=== PATIENT | male | born 1965 | race Caucasian/White ===

== ENCOUNTER 2022-02-22 10:38 | Emergency (ER) | payer OTHER ==
[~2022-02-22] VITALS: Ht 180.3 cm; Wt 122.5 kg
[2022-02-22 11:26] LABS: CREATININE 0.8 mg/dL (0.5-1.5); POTASSIUM 4.2 mmol/L (3.5-5.1)
[2022-02-22 11:29] LABS: BASOPHILS % (AUTO) 0.2 % (0.0-5.0); EOSINOPHILS % (AUTO) 0.5 % (0.0-8.0); LYMPHOCYTES % (AUTO) 17.6 % (21.0-51.0); MEAN CORPUSCULAR HEMOGLOBIN 30.6 pg (27.0-33.0); MEAN CORPUSCULAR HGB CONC 33.9 g/dL (32.0-36.0); MEAN CORPUSCULAR VOLUME 90.3 fL (79-99); MONOCYTES % (AUTO) 10.7 % (3.0-13.0); NEUTROPHILS % (AUTO) 69.4 % (40.0-77.0); PLATELET COUNT (AUTO) 286 K/uL (130-400); RED BLOOD CELL COUNT(AUTO) 5.65 MIL/uL (4.50-6.20); RED CELL DISTRIBUTION WIDTH 12.9 % (11.0-15.5); WHITE BLOOD COUNT (AUTO) 8.2 K/uL (4.8-10.8)
[2022-02-22 11:31] LABS: ALBUMIN 3.5 g/dL (3.5-5.0); TOTAL PROTEIN, SERUM 7.8 g/dL (6.0-8.3)
[2022-02-22] MEDS ORDERED: IOHEXOL 350 MG/ML 100ML INFUS..BTL IV ONE (13:57)
[2022-02-22 14:32] LABS: APPEARANCE,URINE CLEAR (CLEAR); BILIRUBIN,URINE NEGATIVE (NEGATIVE); COLOR,URINE YELLOW (YELLOW); GLUCOSE, URINE (UA) NEGATIVE (NEGATIVE); KETONES,URINE 40 mg/dL (NEGATIVE); LEUKOCYTE ESTERASE ,URINE NEGATIVE Leu/uL (NEGATIVE); NITRATE,URINE NEGATIVE (NEGATIVE); OCCULT BLOOD,URINE NEGATIVE (NEGATIVE); PROTEIN,URINE NEGATIVE (NEGATIVE); UROBILINOGEN,URINE 0.2 mg/dL (0.2-1.0)
[2022-02-22 14:48] LABS: MUCUS,URINE RARE LPF (None Seen); RBC,URINE 0-1 /HPF (0-1); WBC,URINE 0-1 /HPF (0-1)
[2022-02-22] MEDS ORDERED: PANTOPRAZOLE 40 MG/VIAL IVP STA (15:21)
[2022-02-22] MEDS ORDERED: KETOROLAC 15MG/ML VIAL (15MG/ML) IV STA (15:35)
[2022-02-22] MEDS ORDERED: CIPR-279 PO (15:38)
[2022-02-22] MEDS ORDERED: ACET-66 PO (15:38)
[2022-02-22 16:17] VITALS: BP 131/86
== END 2022-02-22 16:17 | disposition home or self-care (01) ==
LOC: EDH 10:38
DX: K52.9 Noninfective gastroenteritis and colitis, unspecified (principal); K57.30 Diverticulosis of large intestine without perforation or abscess without bleeding; E78.00 Pure hypercholesterolemia, unspecified; I10 Essential (primary) hypertension; Z87.19 Personal history of other diseases of the digestive system; Z90.49 Acquired absence of other specified parts of digestive tract; Z95.5 Presence of coronary angioplasty implant and graft
CPT/HCPCS: 99285; 74177; 96374; 71045; 96375; 84484; 80053; 83690; 85025; 81001; 36415; 93005; C9113; J1885; Q9967

== ENCOUNTER 2022-05-08 13:31 | Inpatient (IN) | payer OTHER ==
[~2022-05-08] VITALS: Ht 177.8 cm; Wt 112.5 kg
[~2022-05-08 13:31] MED LIST: ACET-66 PO; CIPR-279 PO
[2022-05-08 13:56] LABS: BASOPHILS % (AUTO) 0.3 % (0.0-5.0); EOSINOPHILS % (AUTO) 0.5 % (0.0-8.0); HEMATOCRIT 42.7 % (42-54); LYMPHOCYTES % (AUTO) 20.8 % (21.0-51.0); MEAN CORPUSCULAR HEMOGLOBIN 31.2 pg (27.0-33.0); MEAN CORPUSCULAR HGB CONC 35.6 g/dL (32.0-36.0); MEAN CORPUSCULAR VOLUME 87.7 fL (79-99); MONOCYTES % (AUTO) 6.6 % (3.0-13.0); NEUTROPHILS % (AUTO) 71.3 % (40.0-77.0); PLATELET COUNT (AUTO) 296 K/uL (130-400); RED BLOOD CELL COUNT(AUTO) 4.87 MIL/uL (4.50-6.20); RED CELL DISTRIBUTION WIDTH 13.3 % (11.0-15.5); WHITE BLOOD COUNT (AUTO) 10.3 K/uL (4.8-10.8)
[2022-05-08 14:09] LABS: ALBUMIN 3.3 g/dL (3.5-5.0)
[2022-05-08] MEDS ORDERED: KETOROLAC 30MG VIAL (30MG/ML) IVP ONE (16:00)
[2022-05-08] MEDS ORDERED: PANTOPRAZOLE 40 MG/VIAL IVP ONE (16:00)
[2022-05-08] MEDS ORDERED: NITROGLYCERIN 0.4 MG SL TAB SL STA (16:42)
[2022-05-08 16:48] LABS: APPEARANCE,URINE CLEAR (CLEAR); BILIRUBIN,URINE NEGATIVE (NEGATIVE); COLOR,URINE LIGHT-YELLOW (YELLOW); GLUCOSE, URINE (UA) NEGATIVE (NEGATIVE); KETONES,URINE NEGATIVE (NEGATIVE); LEUKOCYTE ESTERASE ,URINE NEGATIVE Leu/uL (NEGATIVE); NITRATE,URINE NEGATIVE (NEGATIVE); OCCULT BLOOD,URINE NEGATIVE (NEGATIVE); PROTEIN,URINE NEGATIVE (NEGATIVE); UROBILINOGEN,URINE 0.2 mg/dL (0.2-1.0)
[2022-05-08 17:00] LABS: AMPHET/METH SCREEN,URINE NEGATIVE (NEGATIVE); BARBITURATE SCREEN, URINE NEGATIVE (NEGATIVE); BENZODIAZEPINES SCREEN,URINE NEGATIVE (NEGATIVE); CANNABINOID SCREEN,URINE NEGATIVE (NEGATIVE); COCAINE SCREEN,URINE NEGATIVE (NEGATIVE); OPIATE SCREEN,URINE NEGATIVE (NEGATIVE); PHENCYCLIDINE SCREEN,URINE NEGATIVE (NEGATIVE)
[2022-05-08] MEDS ORDERED: NITROGLYCERIN 0.4 MG SL TAB SL PRN (20:00)
[2022-05-08] MEDS ORDERED: LACTULOSE 20 GM/30 ML UDCUP PO PRN (20:00)
[2022-05-08] MEDS ORDERED: MAG/ALUM/SIMETH 30 ML UDCUP PO PRN (20:00)
[2022-05-08] MEDS ORDERED: DIPHENHYDRAMINE HCL 25 MG CAPSULE PO PRN (20:00)
[2022-05-08] MEDS ORDERED: ONDANSETRON 4MG INJ IVP PRN (20:00)
[2022-05-08] MEDS ORDERED: ACETAMINOPHEN 325 MG TAB PO PRN (20:00)
[2022-05-08] MEDS ORDERED: CLONIDINE HCL 0.1 MG TABLET PO PRN (20:00)
[2022-05-08] MEDS ORDERED: ATORVASTATIN 20 MG TABLET PO SCH (21:00)
[2022-05-08] MEDS: FAMOTIDINE 20MG TAB PO SCH (21:27)
[2022-05-08 22:33] VITALS: BP 125/81
[2022-05-09 04:14] VITALS: BP 126/76
[2022-05-09 05:07] LABS: BASOPHILS % (AUTO) 0.4 % (0.0-5.0); EOSINOPHILS % (AUTO) 1.6 % (0.0-8.0); HEMATOCRIT 44.1 % (42-54); MEAN CORPUSCULAR HEMOGLOBIN 30.4 pg (27.0-33.0); MEAN CORPUSCULAR HGB CONC 34.2 g/dL (32.0-36.0); MEAN CORPUSCULAR VOLUME 88.9 fL (79-99); MONOCYTES % (AUTO) 10.2 % (3.0-13.0); NEUTROPHILS % (AUTO) 68.3 % (40.0-77.0); PLATELET COUNT (AUTO) 279 K/uL (130-400); RED BLOOD CELL COUNT(AUTO) 4.96 MIL/uL (4.50-6.20); RED CELL DISTRIBUTION WIDTH 13.3 % (11.0-15.5); WHITE BLOOD COUNT (AUTO) 9.7 K/uL (4.8-10.8)
[2022-05-09 05:46] LABS: CREATININE 0.9 mg/dL (0.5-1.5); POTASSIUM 4.4 mmol/L (3.5-5.1); THYROID STIMULATING HORMONE 0.79 uIU/mL (0.36-3.74)
[2022-05-09] MEDS ORDERED: REGADENOSON 0.4 MG/5 ML PF SYG IVP SCH (07:30)
[2022-05-09] MEDS: FAMOTIDINE 20MG TAB PO SCH ×2 (07:39→20:13)
[2022-05-09] MEDS: LISINOPRIL 10 MG TABLET PO SCH (07:40)
[2022-05-09] MEDS: ASPIRIN 81 MG EC TAB PO SCH (07:40)
[2022-05-09 08:00] VITALS: BP 124/74
[2022-05-09] MEDS: ENOXAPARIN SODIUM 40 MG/0.4 ML SYRINGE SQ SCH (09:00)
[2022-05-09] MEDS: ACETAMINOPHEN 325 MG TAB PO PRN (11:44)
[2022-05-09 11:53] VITALS: BP 135/87
[2022-05-09 15:42] VITALS: BP 129/67
[2022-05-09 19:30] VITALS: BP 117/68
[2022-05-09] MEDS ORDERED: ISOSORBIDE MONO 30MG SR TAB PO ONE (19:30)
[2022-05-09] MEDS: ATORVASTATIN 40 MG TABLET PO SCH (20:14)
[2022-05-09] MEDS: CARVEDILOL 3.125 MG TABLET PO SCH (20:14)
[2022-05-10] VITALS (13 sets, daily range): BP systolic 97–126; BP diastolic 54–83
[2022-05-10] MEDS: ACETAMINOPHEN 325 MG TAB PO PRN (05:50)
[2022-05-10 05:52] LABS: BASOPHILS % (AUTO) 0.2 % (0.0-5.0); EOSINOPHILS % (AUTO) 1.2 % (0.0-8.0); HEMATOCRIT 44.5 % (42-54); LYMPHOCYTES % (AUTO) 20.1 % (21.0-51.0); MEAN CORPUSCULAR HEMOGLOBIN 30.7 pg (27.0-33.0); MEAN CORPUSCULAR HGB CONC 32.6 g/dL (32.0-36.0); MEAN CORPUSCULAR VOLUME 94.3 fL (79-99); MONOCYTES % (AUTO) 7.9 % (3.0-13.0); PLATELET COUNT (AUTO) 300 K/uL (130-400); RED BLOOD CELL COUNT(AUTO) 4.72 MIL/uL (4.50-6.20); RED CELL DISTRIBUTION WIDTH 13.2 % (11.0-15.5); WHITE BLOOD COUNT (AUTO) 11.5 K/uL (4.8-10.8)
[2022-05-10 06:03] LABS: CREATININE 0.8 mg/dL (0.5-1.5); POTASSIUM 4.4 mmol/L (3.5-5.1)
[2022-05-10] MEDS: LISINOPRIL 10 MG TABLET PO SCH (08:44)
[2022-05-10] MEDS: CARVEDILOL 3.125 MG TABLET PO SCH ×2 (08:44→19:46)
[2022-05-10] MEDS: ASPIRIN 81 MG EC TAB PO SCH (08:44)
[2022-05-10] MEDS: FAMOTIDINE 20MG TAB PO SCH ×2 (08:44→19:46)
[2022-05-10] MEDS: ENOXAPARIN SODIUM 40 MG/0.4 ML SYRINGE SQ SCH (08:45)
[2022-05-10] MEDS: ISOSORBIDE MONO 30MG SR TAB PO SCH (12:09)
[2022-05-10 13:31] LABS: INR 0.94 (0.85-1.15); PROTHROMBIN TIME 10.3 SEC (9.6-11.6)
[2022-05-10] MEDS ORDERED: VERAPAMIL HCL 2.5 MG/ML VIAL ONE (14:46)
[2022-05-10] MEDS ORDERED: IOHEXOL 350 MG/ML 100ML INFUS..BTL IV ONE (14:46)
[2022-05-10] MEDS ORDERED: HEPARIN 10,000 UNIT/10ML (1,000 UNIT/ML) VIAL ONE (14:46)
[2022-05-10] MEDS ORDERED: MIDAZOLAM HCL 1 MG/ML 2ML VIAL ONE (14:46)
[2022-05-10] MEDS ORDERED: IOHEXOL-350 50ML VIAL IV ONE ×2 (14:46→17:12)
[2022-05-10] MEDS ORDERED: NITROGLYCERIN 50MG VIAL ONE (14:46)
[2022-05-10] MEDS ORDERED: FENTANYL CITRATE PF 50 MCG/1 ML 2ML VIAL ONE (14:47)
[2022-05-10] MEDS ORDERED: LIDOCAINE HCL 400MG/20ML VIAL ONE (14:47)
[2022-05-10] MEDS ORDERED: TICAGRELOR 90 MG TABLET ONE (17:35)
[2022-05-10] MEDS ORDERED: 0.9%NACL 1000ML 1,000 ML IV SCH (18:00)
[2022-05-10] MEDS: ATORVASTATIN 40 MG TABLET PO SCH (19:46)
[2022-05-11] MEDS: ACETAMINOPHEN 325 MG TAB PO PRN (03:29)
[2022-05-11 03:57] VITALS: BP 111/63
[2022-05-11 05:34] LABS: BASOPHILS % (AUTO) 0.2 % (0.0-5.0); EOSINOPHILS % (AUTO) 0.8 % (0.0-8.0); HEMATOCRIT 41.7 % (42-54); LYMPHOCYTES % (AUTO) 15.7 % (21.0-51.0); MEAN CORPUSCULAR HEMOGLOBIN 30.8 pg (27.0-33.0); MEAN CORPUSCULAR HGB CONC 33.3 g/dL (32.0-36.0); MEAN CORPUSCULAR VOLUME 92.3 fL (79-99); MONOCYTES % (AUTO) 8.8 % (3.0-13.0); PLATELET COUNT (AUTO) 289 K/uL (130-400); RED BLOOD CELL COUNT(AUTO) 4.52 MIL/uL (4.50-6.20); RED CELL DISTRIBUTION WIDTH 13.2 % (11.0-15.5); WHITE BLOOD COUNT (AUTO) 12.4 K/uL (4.8-10.8)
[2022-05-11 05:51] LABS: CREATININE 0.9 mg/dL (0.5-1.5); POTASSIUM 3.8 mmol/L (3.5-5.1); TOTAL PROTEIN, SERUM 6.3 g/dL (6.0-8.3)
[2022-05-11 05:58] LABS: HEMOGLOBIN A1C 5.3 % (4.0-6.0)
[2022-05-11 08:00] VITALS: BP 157/86
[2022-05-11] MEDS: ASPIRIN 81 MG EC TAB PO SCH (08:35)
[2022-05-11] MEDS: ENOXAPARIN SODIUM 40 MG/0.4 ML SYRINGE SQ SCH (08:35)
[2022-05-11] MEDS: LISINOPRIL 10 MG TABLET PO SCH (08:35)
[2022-05-11] MEDS: ISOSORBIDE MONO 30MG SR TAB PO SCH (08:36)
[2022-05-11] MEDS: FAMOTIDINE 20MG TAB PO SCH (08:37)
[2022-05-11] MEDS: CARVEDILOL 3.125 MG TABLET PO SCH (08:37)
[2022-05-11] MEDS ORDERED: TICAGRELOR 90 MG TABLET PO SCH (09:00)
[2022-05-11] MEDS ORDERED: FAMO20TA8 PO (09:55)
[2022-05-11] MEDS ORDERED: CARV3.1262 PO (09:55)
[2022-05-11] MEDS ORDERED: Isosorbide Mono 30MG Sr Tab PO (09:55)
[2022-05-11] MEDS ORDERED: LISI10TA24 PO (09:55)
[2022-05-11] MEDS ORDERED: ATOR40TA69 PO (09:55)
[2022-05-11] MEDS ORDERED: TICA90TA PO (09:55)
[2022-05-11] MEDS ORDERED: AEC81 PO (09:55)
[2022-05-11 11:52] VITALS: BP 116/64
== END 2022-05-11 12:30 | disposition home or self-care (01) | DRG 247 ==
LOC: EDH 13:31 → EDHIP 13:32 → OBSVTOIN 13:32 → 4CH 21:29
PROVIDERS: ADMIT Family Medicine; ATTEND Family Medicine
PROC: 4A02XM4 Measurement of Cardiac Total Activity, External Approach (ICD-10-PCS; 2022-05-09)
PROC: 3E073KZ Introduction of Other Diagnostic Substance into Coronary Artery, Percutaneous Approach (ICD-10-PCS; 2022-05-09)
PROC: 4A023N7 Measurement of Cardiac Sampling and Pressure, Left Heart, Percutaneous Approach (ICD-10-PCS; principal; 2022-05-10)
PROC: 027034Z Dilation of Coronary Artery, One Artery with Drug-eluting Intraluminal Device, Percutaneous Approach (ICD-10-PCS; 2022-05-10)
PROC: B2111ZZ Fluoroscopy of Multiple Coronary Arteries using Low Osmolar Contrast (ICD-10-PCS; 2022-05-10)
DX: I25.110 Atherosclerotic heart disease of native coronary artery with unstable angina pectoris (principal); G89.29 Other chronic pain; M54.9 Dorsalgia, unspecified; E66.01 Morbid (severe) obesity due to excess calories; F32.A Depression, unspecified; E78.00 Pure hypercholesterolemia, unspecified; I50.9 Heart failure, unspecified; Z90.49 Acquired absence of other specified parts of digestive tract; I25.2 Old myocardial infarction; Z79.82 Long term (current) use of aspirin; Z79.899 Other long term (current) drug therapy; Z87.19 Personal history of other diseases of the digestive system; Z68.35 Body mass index [BMI] 35.0-35.9, adult
CPT/HCPCS: 36415; 71045; 78452; 80048; 80053; 80061; 80305; 81003; 83036; 83735; 83880; 84443; 84484; 85025; 85610; 85730; 87040; 93005; 93017; 93306; 93356; 93458; 96374; 99156; 99157; A9500; C1769; C1887; C9113; C9600; G0378; J1644; J1650; J1885; J2250; J2785; J3010; J3490; Q9967

== ENCOUNTER → 2023-08-08 | Outpatient (CLI) | payer OTHER ==
[~2023-08-08] MED LIST changes: -ACET-66 PO; +AEC81 PO; +ATOR40TA69 PO; +CARV3.1262 PO; -CIPR-279 PO; +FAMO20TA8 PO; +Isosorbide Mono 30MG Sr Tab PO; +LISI10TA24 PO; +TICA90TA PO
== END | disposition home or self-care (01) ==
LOC: RAH 15:09
PROVIDERS: ATTEND Internal Medicine
DX: M54.50 Low back pain, unspecified (principal)
CPT/HCPCS: 72100

== ENCOUNTER 2025-01-07 12:34 | Emergency (ER) | payer SELFPAY ==
[~2025-01-07] VITALS: Ht 182.9 cm; Wt 95.3 kg
--- NOTE | 2025-01-07 12:51 | ERN ---
ED Note History of Present Illness Stated Complaint: CP/ SOB/ SYNCOPE Chief Complaint: Multiple Complaints Time Seen by MD: 12:44 Dictation: IS A 59-YEAR-OLD HERE WITH MULTIPLE COMPLAINTS COMING IN VIA EMS. FIRST COMPLAINT IS HE STATES THIS MORNING HE HAD BEEN HAVING NAUSEA VOMITING WITH CONSTIPATION HAS BEEN ON THE TOILET, GOT UP TO WALK AND FELT AND HIT HIS LEFT SIDE AND HEAD. HE STATES HE CAN NOT REMEMBER ANYTHING. HE SAID WHEN HE WOKE UP HE SIMPLY GOT UP FROM THE FLOOR AND WENT BACK TO HIS BEDROOM. HE ALSO STATES HE HAS BEEN HAVING ANTERIOR CHEST PAIN STARTING THIS MORNI WITHOUT SHORTNESS A BREATH, NO JAW PAIN NO ARM PAIN NO BACK PAIN. STATES HE DOES HAVE A HISTORY OF PRIOR STENT PLACED BY HIS [employer] LINE [facility]PERATOR'S IN [facility], CAN NOT REMEMBER THE NAME. HE IS ON A PLATELET AGGREGATE HOWEVER THERE WAS NO BLOOD THINNER. NO NAUSEA VOMITING AND HE IS ABLE TO ANSWER ALL QUESTIONS APPROPRIATELY. NIH IS 0. NO IRAHETA OR RACCOON SIGN ON THE EMS STRETCHER THERE WAS NO HEMOTYMPANUM. Allergies: Coded Allergies: No Known Allergies (Unverified Allergy, Unknown, 02/22/22) Home Meds Active Scripts Carvedilol (Coreg) 3.125 Mg Tablet, 3.125 MG PO BID, #60 TAB 0 Refills Prov:MELVIN PACHECO AGACNP 05/11/22 Famotidine (Famotidine) 20 Mg Tablet, 20 MG PO BID, #60 TAB 0 Refills Prov:MELVIN PACHECO AGACNP 05/11/22 Atorvastatin Calcium (LIPITOR) 40 Mg Tablet, 40 MG PO HS, #30 TAB 0 Refills Prov:MELVIN PACHECO AGACNP 05/11/22 Ticagrelor (Brilinta) 90 Mg Tablet, 90 MG PO BID, #60 TAB 0 Refills Prov:MELVIN PACHECO AGACNP 05/11/22 Lisinopril (Lisinopril) 10 Mg Tablet, 10 MG PO DAILY, #30 TAB 0 Refills Prov:MELVIN PACHECO AGACNP 05/11/22 [Isosorbide [place] 30MG Sr Tab] 30 MG TAB.ER.24H No Conflict Check, 30 MG PO DAILY, #30 0 Refills Prov:MELVIN PACHECO AGACNP 05/11/22 Aspirin (ASPIRIN 81 MG ECTAB) 81 Mg Ectab, 81 MG PO DAILY, #30 TAB.EC 0 Refills Prov:MELVIN PACHECO AGACNP 05/11/22 Past Medical History Past Medical History: CAD, CHF, High Cholesterol, Hypertension, [place] Additional Past Medical Hx: HIATAL HERNIA, POLYPS IN COLON Surgical History: Cholecystectomy Surgical History Other: CARDIAC STENTX1 Social History: Negative RN Note Reviewed/Agreed w/PFSH: Yes Review of System Dictation CONSTITUTIONAL: NEGATIVE EXCEPT FOR HPI HEAD/FACE: NEGATIVE EXCEPT FOR HPI LEFT OCCIPITAL TENDERNESS EENT: NEGATIVE EXCEPT FOR HPI RESPIRATORY: NEGATIVE EXCEPT FOR HPI CHEST PAIN GASTROINTESTINAL/ABDOMINAL: NEGATIVE EXCEPT FOR HPI NAUSEA VOMITING GENITOURINARY: NEGATIVE EXCEPT FOR HPI MUSCULOSKELETAL: NEGATIVE EXCEPT FOR HPI INTEGUMENTARY: NEGATIVE EXCEPT FOR HPI NEUROLOGICAL/PSYCH: NEGATIVE EXCEPT FOR HPI HEMATOLOGIC/LYMPHATIC: NEGATIVE EXCEPT FOR HPI ALL SYSTEMS NEGATIVE, EXCEPT NOTED ABOVE. 13 POINT REVIEW OF SYSTEMS ASSESSED AND ALL NEGATIVE EXCEPT FOR ABOVE. Initial Vital Sign VS Vital Signs Date Time Temp Pulse Resp B/P (MAP) Pulse Ox O2 Delivery O2 Flow Rate FiO2 01/07/25 14:33 98.1 100 16 112/69 100 Room Air* 0 21 Physical Exam Dictation NORMAL EXAM VITAL SIGNS REVIEWED GENERAL APPEARANCE: ALERT, ORIENTED X 3, MILD ACUTE DISTRESS, WELL DEVELOPED, NOURISHED. HEAD AND FACE: MILD LEFT OCCIPITAL TENDERNESS. NO HEMATOMA NO IRAHETA OR RACCOON SIGN EYES: PERRL, PINK CONJUNCTIVAS, EYELID NO TRAUMA, ANTERIOR CHAMBER WITH ARCUS SENILIS. EARS: PINNAS INTACT AND NO SIGNS OF TRAUMA OR ERYTHEMA EAR CANALS CLEAR AND NO DISCHARGE TM NO ERYTHEMA NO HEMOTYMPANUM NOSE: NO DISCHARGE, NO BLEEDING. OROPHARYNX: MOUTH NORMAL, TONGUE PINK, PHARYNX CLEAR,NO ERYTHEMA, TONSILS NO EXUDATES, NO ABSCESSES NOTED, MUCOUS MEMBRANE MOIST NECK: SUPPLE, NON-TENDER, NO THYROMEGALY, NO MASSES, NO JVD, NO BRUITS BREAST:DEFERRED CHEST:NO TENDERNESS, NO CREPITUS, NO PARADOXICAL MOVEMENT, NO RETRACTIONS LUNGS:CLEAR, WELL-VENTILATED, SYMMETRIC, NO RALES, NO WHEEZING, NO RHONCHI, NO STRIDOR, GOOD BREATH SOUNDS BILATERALLY HEART: REGULAR RATE, REGULAR RHYTHM, NO MURMUR, NO GALLOPS VASCULAR: NO PERIPHERAL EDEMA, ABDOMEN: SOFT, POSITIVE BOWEL SOUNDS, NONDISTENDED, NO GUARDING, NONTENDER, NO REBOUND, NO MASSES NO HEPATOMEGALY, NO SPLENOMEGALY, NO BRENNER'S SIGN, NO HERNIAS. RECTAL: DEFERRED GENITAL: DEFERRED NEUROLOGICAL: NORMAL SPEECH, MOTOR FUNCTION INTACT, SENSORY FUNCTION INTACT MUSCULOSKELETAL: NECK NONTENDER, FULL RANGE OF MOTION, BACK NONTENDER, FULL RANGE OF MOTION, EXTREMITIES: NONTENDER, FULL RANGE OF MOTION SKIN: COLOR PINK, DRY, NO TURGOR, NO RASH, NO LACERATIONS, NO ABRASIONS, NO CONTUSIONS. LYMPHATIC: DEFERRED Results (Laboratory/Radiology) Laboratory/Radiology Laboratory Tests Test 01/07/25 13:01 01/07/25 15:15 White Blood Count 12.5 K/uL (4.8-10.8) H Red Blood Count 5.46 MIL/uL (4.50-6.20) Hemoglobin 17.3 g/dL (14.0-18.0) Hematocrit 50.8 % (42-54) Mean Corpuscular Volume 93.0 fL (79-99) Mean Corpuscular Hemoglobin 31.7 pg (27.0-33.0) Mean Corpuscular Hemoglobin Concent 34.1 g/dL (32.0-36.0) Red Cell Distribution Width 13.8 % (11.0-15.5) Platelet Count 334 K/uL (130-400) Mean Platelet Volume 9.6 fL (7.5-10.5) Immature Granulocyte % (Auto) 0.5 % (0-1) Neutrophils (%) (Auto) 89.8 % (40.0-77.0) H Lymphocytes (%) (Auto) 4.6 % (21.0-51.0) L Monocytes (%) (Auto) 4.7 % (3.0-13.0) Eosinophils (%) (Auto) 0.2 % (0.0-8.0) Basophils (%) (Auto) 0.2 % (0.0-5.0) Neutrophils # (Auto) 11.2 K/uL (1.8-7.7) H Lymphocytes # (Auto) 0.6 K/uL (1.0-4.8) L Monocytes # (Auto) 0.6 K/uL (0.1-1.0) Eosinophils # (Auto) 0.03 K/uL (0.00-0.70) Basophils # (Auto) 0.03 K/uL (0.00-0.20) Absolute Immature Granulocyte (auto 0.06 K/uL (0-1) Nucleated Red Blood Cells 0.0 % (0.0-0.19) White Cell Morphology Comment See comments Sodium Level 139 mmol/L (136-145) Potassium Level 4.1 mmol/L (3.5-5.1) Chloride Level 105 mmol/L (101-111) Carbon Dioxide Level 28 mmol/L (21-32) Blood Urea Nitrogen 20 mg/dL (7-18) H Creatinine 0.8 mg/dL (0.5-1.3) Glomerular Filtration Rate Calc 103 mL/min (>90) Random Glucose 101 mg/dL (70-105) Total Calcium 8.7 mg/dL (8.5-10.1) Troponin I High Sensitivity 7 ng/L (4-75) Lipase 26 U/L (16-77) Urine Color YELLOW (YELLOW) Urine Appearance CLEAR (CLEAR) Urine pH 7.5 (5.0-8.0) Urine Specific Sebastian 1.027 (1.001-1.031) Urine Protein 10 mg/dL (NEGATIVE) H Urine Glucose (UA) NEGATIVE mg/dL (NEGATIVE) Urine Ketones NEGATIVE mg/dL (NEGATIVE) Urine Occult Blood NEGATIVE (NEGATIVE) Urine Nitrate NEGATIVE (NEGATIVE) Urine Bilirubin NEGATIVE mg/dL (NEGATIVE) Urine Urobilinogen 2.0 mg/dL (0.2-1.0) H Urine Leukocyte Esterase NEGATIVE David/uL Urine RBC 0-1 /HPF (0-1) Urine WBC 0-1 /HPF (0-1) Urine Squamous Epithelial Cells RARE /HPF (0-2) Urine Bacteria None /HPF (None Seen) EXAM: CT Head Without IV contrast. CLINICAL HISTORY: OCCIPITAL PAIN TENDERNESS STATUS POST FALL TECHNIQUE: Axial computed tomography images of the head/brain without intravenous contrast. COMPARISON: None provided. FINDINGS: BRAIN: No evidence of acute hemorrhage. No mass lesion. No CT evidence for acute territorial infarct. No midline shift or extra-axial collections. VENTRICLES: No hydrocephalus. ORBITS: The orbits are unremarkable. SINUSES AND MASTOIDS: The paranasal sinuses and mastoid air cells are clear. BONES: No fracture. SOFT TISSUES: Unremarkable. IMPRESSION: No acute intracranial abnormality. /[facility] Labs Reviewed?: Yes EKG Comment: 1313/EKG SINUS TACHYCARDIA/HEART RATE 1 OVER SEVEN/OCCASIONAL PACS ED Course ED Course Orders Procedure Category Date Status Time Ct Head/Brain W/O CT 01/07/25 Resulted Contrast 12:49 Cbc With Differential LAB 01/07/25 Complete 12:49 Troponin I High LAB 01/07/25 Complete Sensitivity 12:49 Urinalysis Profile LAB 01/07/25 Complete 12:49 12 Lead Ekg Tracing- EKG 01/07/25 Complete Technical 12:49 0.9%Nacl 1000ml (Ns PHA 01/07/25 Complete 1000ml) 13:00 Lipase LAB 01/07/25 Complete 12:49 Basic Metabolic Panel LAB 01/07/25 Complete 12:49 Acetaminophen 500mg PHA 01/07/25 Complete Tab (Tylenol 500mg T 13:00 Current Medications Medications (Trade) Dose Ordered Sig/Shabnam Route PRN Reason Start Time Stop Time Status Last Admin Dose Admin Acetaminophen (TYLenol 500MG TAB) 1,000 mg ONCE ONCE PO 01/07/25 13:00 01/07/25 13:01 DC 01/07/25 14:09 Sodium Chloride 1,000 ml @ 0 mls/hr ONCE ONCE IV 01/07/25 13:00 01/07/25 13:01 DC 01/07/25 14:09 Vital Signs Date Time Temp Pulse Resp B/P (MAP) Pulse Ox O2 Delivery O2 Flow Rate FiO2 01/07/25 14:33 98.1 100 16 112/69 100 Room Air* 0 21 1550/CAT SCAN OF THE HEAD IS NEGATIVE CARDIAC WORKUP IS NEGATIVE. PATIENT DISCHARGED HOME TO FOLLOW UP WITH HIS PRIMARY CARE DOCTOR IN THE NEXT 1-2 DAYS. CLOSED HEAD INJURY INFORMATION GIVE HEART Score Response (Comments) Value EKG: Repolarization changes 1 Age: 45-65yrs (+1) 1 Risk Factors: 1-2 risk factors (+1) 1 Initial Troponin: Normal limit (0) 0 Total 3 Medical Decision Making MDM MDM: DIFFERENTIAL DIAGNOSIS: ACS/AMI/ELECTROLYTE IMBALANCE/DEHYDRATION/CLOSED HEAD INJURY/DROP SUBDURAL HEMATOMA/UTI RATIONALE: TESTS CONSIDERED AND ORDERED SECONDARY TO SHARED DECISION MAKING INCLUDE: LABS/RADIOLOGY/EKG PREVIOUS OUTSIDE RECORDS REVIEWED: OLD ER VISITS. RISK OF COMPLICATION AND/OR MORBIDITY OR MORTALITY OF PATIENT MANAGEMENT: NONE MEDICATIONS-PER MEDICATION RECONCILIATION NEED FOR HOSPITALIZATION: PATIENT DOES NOT MEET CRITERIA FOR HOSPITALIZATION. NO NEED FOR EMERGENCY MAJOR/MINOR SURGERY: NO THERE ARE NO SOCIAL CONCERNS WITH THIS PATIENT. PRESCRIPTION DRUG MANAGEMENT ZOFRAN PRESCRIPTIONS WILL INCLUDE SYMPTOMATIC CARE PATIENT'S PRIOR EXTERNAL MEDICAL RECORDS FROM OTHER ER VISITS WERE REVIEWED BY ME INDICATED. PRIOR TESTING AND RESULTS FROM PREVIOUS VISITS WERE REVIEWED. PRIOR TESTS WERE TAKEN INTO ACCOUNT WITH MEDICAL DECISION MAKING AND RESOURCE UTILIZATION, INDEPENDENT HISTORIAN/HISTORIANS WERE USED TO OBTAIN COMPLETE MEDICAL HISTORY. I INDEPENDENTLY INTERPRETED THE TEST THAT WERE PERFORMED, RESULTS WERE REVIEWED BY ME AND CONSIDERED FINDINGS ON RADIOLOGY IF ORDERED. MEDICAL MANAGEMENT AND EXAMINATION INTERPRETATION DISCUSSIONS WERE HAD BY ME WITH OTHER QUALIFIED HEALTHCARE PROFESSIONALS INDICATED FOR THE PATIENT'S CARE. DX & DISP Disposition: Discharge Departure Impression: Primary Impression: Atypical chest pain Additional Impressions: Nausea & vomiting, Contusion of scalp, initial encounter, Fall, Obesity, Multiple contusions Condition: Stable Scripts Ondansetron (Ondansetron Odt) 4 Mg Tab.rapdis 4 MG PO Q6HPRN PRN for nausea, #16 TAB 0 Refills Prov: TOM MCKEON 01/07/25 Additional Instructions: FOLLOW-UP WITH PRIMARY CARE PROVIDER IN 1 TO 2 DAYS. TAKE MEDICATIONS DIRECTED HERE IN THE EMERGENCY ROOM. OKAY TO CONTINUE HOME MEDICATIONS UNLESS OTHERWISE DISCUSSED DURING YOUR VISIT IN THE EMERGENCY ROOM TODAY. RETURN TO YOUR NEAREST EMERGENCY ROOM IF SYMPTOMS WORSEN OR IF THERE IS NO IMPROVEMENT. CALL 911 IF YOU NEED IMMEDIATE ASSISTANCE. TAKE TYLENOL OR MOTRIN [id number] NEEDED AND IF NO CONTRAINDICATIONS ARE PRESENT. INCREASE ORAL HYDRATION. A WOUND CULTURE OR URINE CULTURE WAS ORDERED HERE IN THE EMERGENCY ROOM DEPARTMENT PLEASE FOLLOW-UP WITH PRIMARY CARE PROVIDER AND ADVISE THEM TO GET REPEAT PORTS FROM OUR FACILITY. IF YOU HAD ANY FRANCINE WRAP/SPLINTS THAT WERE APPLIED HERE, PLEASE DO NOT REMOVE THEM UNTIL YOU SEE YOUR PRIMARY CARE OR SPECIALTY. TAKE TYLENOL [id number]-YLHDRAR NEEDED FOR YOUR HEAD PAIN. INCREASE YOUR FLUID INTAKE. DIET AND ACTIVITY TOLERATED, SEE YOUR PRIMARY CARE DOCTOR FOR FOLLOW UP AND MANAGEMENT. Referrals: NONE (PCP) Time of Disposition: 15:54 I have reviewed the case, and I agree with, Diagnosis and Plan TOM MCKEON Jan 07, 2025 12:51
[2025-01-07 13:13] LABS: IMMATURE GRANULOCYTE ABSOLUTE 0.06 K/uL (0-1); NUCLEATED RED BLOOD CELLS 0.0 % (0.0-0.19); PLATELET COUNT (AUTO) 334 K/uL (130-400); RED BLOOD CELL COUNT(AUTO) 5.46 MIL/uL (4.50-6.20); RED CELL DISTRIBUTION WIDTH 13.8 % (11.0-15.5); WHITE BLOOD COUNT (AUTO) 12.5 K/uL (4.8-10.8)
[2025-01-07 13:29] LABS: CREATININE 0.8 mg/dL (0.5-1.3); GLOMERULAR FILTR. RATE CALC 103.0 mL/min (>90); GLUCOSE,RANDOM 101.0 mg/dL (70-105); SODIUM SERUM 139.0 mmol/L (136-145); UREA NITROGEN, BLOOD 20.0 mg/dL (7-18)
[2025-01-07] MEDS: 0.9%NACL 1000ML 1,000 ML IV ONE (14:09)
--- NOTE | 2025-01-07 14:42 | EKG ---
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
--- NOTE | 2025-01-07 15:03 | HMCIMG ---
EXAM: CT Head Without IV contrast. CLINICAL HISTORY: OCCIPITAL PAIN TENDERNESS STATUS POST FALL TECHNIQUE: Axial computed tomography images of the head/brain without intravenous contrast. COMPARISON: None provided. FINDINGS: BRAIN: No evidence of acute hemorrhage. No mass lesion. No CT evidence for acute territorial infarct. No midline shift or extra-axial collections. VENTRICLES: No hydrocephalus. ORBITS: The orbits are unremarkable. SINUSES AND MASTOIDS: The paranasal sinuses and mastoid air cells are clear. BONES: No fracture. SOFT TISSUES: Unremarkable. IMPRESSION: No acute intracranial abnormality. /[place]
[2025-01-07 15:25] LABS: APPEARANCE,URINE CLEAR (CLEAR); GLUCOSE, URINE (UA) NEGATIVE (NEGATIVE); LEUKOCYTE ESTERASE ,URINE NEGATIVE Leu/uL (NEGATIVE); NITRATE,URINE NEGATIVE (NEGATIVE); OCCULT BLOOD,URINE NEGATIVE (NEGATIVE)
[2025-01-07 15:27] LABS: ADD UA MICROSCOPIC YES
[2025-01-07 15:29] LABS: SQUAMOUS EPITHELIAL CELL,UR RARE /HPF (0-2)
[2025-01-07] MEDS ORDERED: ONDA-243 PO (15:55)
[2025-01-07 16:06] VITALS: O2SAT 98
[2025-01-07 16:08] VITALS: BP 156/78; PULSE 85; RESP 22; TEMP 98.3
== END 2025-01-07 16:27 | disposition home or self-care (01) ==
LOC: EDH 12:34
DX: S00.03XA Contusion of scalp, initial encounter (principal); R07.89 Other chest pain; R11.2 Nausea with vomiting, unspecified; E66.9 Obesity, unspecified; E78.00 Pure hypercholesterolemia, unspecified; I11.0 Hypertensive heart disease with heart failure; I50.9 Heart failure, unspecified; I25.10 Atherosclerotic heart disease of native coronary artery without angina pectoris; Z79.82 Long term (current) use of aspirin; Z79.899 Other long term (current) drug therapy; Z86.0100 Personal history of colon polyps, unspecified; Z90.49 Acquired absence of other specified parts of digestive tract; W18.39XA Other fall on same level, initial encounter; Y93.89 Activity, other specified; Y92.89 Other specified places as the place of occurrence of the external cause; Y99.8 Other external cause status
CPT/HCPCS: 99284; 96360; 70450; 84484; 80048; 83690; 85025; 81001; 36415; 93005; J7030